=== PATIENT | female | born 1940 | race Hispanic/Latino ===

== ENCOUNTER 2018-08-07 08:10 | Day surgery (SDC) | payer MEDICARE ==
[~2018-08-07] VITALS: Ht 157.5 cm; Wt 83.9 kg
[2018-08-07] VITALS (7 sets, daily range): BP systolic 113–139; BP diastolic 42–58
[~2018-08-07 08:10] MED LIST: SODIUM CHLORIDE 0.9% 1000ML 1,000 ML IV ONE
[2018-08-07] MEDS ORDERED: INSULIN (10:40)
[2018-08-07] MEDS ORDERED: METOPROLOL (10:40)
[2018-08-07] MEDS ORDERED: FUROSEMIDE (10:40)
[2018-08-07] MEDS ORDERED: GABAPENTIN (10:40)
[2018-08-07] MEDS ORDERED: FERROUS SULFATE (10:40)
[2018-08-07] MEDS ORDERED: FOLIC ACID (10:40)
[2018-08-07] MEDS ORDERED: LISINOPRIL (10:40)
[2018-08-07] MEDS ORDERED: PROPOFOL 10 MG/ML 20ML VIAL IV ONE ×2 (11:13→12:03)
[2018-08-07] MEDS ORDERED: LIDOCAINE HCL-MPF 2% 5ML VIAL ONE (11:14)
== END 2018-08-07 12:10 | disposition home or self-care (01) ==
LOC: DAH 08:10 → ENDO 08:10
PROVIDERS: ATTEND Internal Medicine
DX: D50.9 Iron deficiency anemia, unspecified (principal); E11.9 Type 2 diabetes mellitus without complications; D64.9 Anemia, unspecified; M81.0 Age-related osteoporosis without current pathological fracture; M19.90 Unspecified osteoarthritis, unspecified site; Z90.710 Acquired absence of both cervix and uterus; Z98.49 Cataract extraction status, unspecified eye; Z79.899 Other long term (current) drug therapy; Z68.34 Body mass index [BMI] 34.0-34.9, adult; I11.0 Hypertensive heart disease with heart failure; I50.9 Heart failure, unspecified
CPT/HCPCS: 43239; 82948 ×2; 88305; A4606; J2704 ×2; J3490; J7030